=== PATIENT | female | born 1975 | race Caucasian/White ===

== ENCOUNTER 2022-03-10 06:49 | Emergency (ER) | payer MEDICAID ==
[2022-03-10] MEDS ORDERED: Sodium Chloride 0.9% 10 ML Syringe FLUSH PRN (07:24)
[2022-03-10] MEDS ORDERED: HYDROmorphone 1 MG/ML Syringe IVPUSH ONE ×2 (07:24→08:53)
[2022-03-10] MEDS ORDERED: Lidocaine/Prilocaine 2.5-2.5% Crm 5 GM Tube TOP ONE (07:34)
[2022-03-10] MEDS ORDERED: Lidocaine/Prilocaine 2.5-2.5% Crm 5 GM Tube ONE (07:34)
[2022-03-10] MEDS ORDERED: Vancomycin 2 GM in Sodium Chloride 0.9% 500 ML IV ONE (08:12)
[2022-03-10] MEDS ORDERED: Ketorolac 30 MG/ML SDV IVPUSH ONE (09:19)
[2022-03-10] MEDS ORDERED: Bacitracin Oint 1 GM U/D Packet TOP ONE (10:29)
== END 2022-03-10 10:40 | disposition home or self-care (01) ==
LOC: DL.ED 06:49
DX: K12.2 Cellulitis and abscess of mouth (principal); Z87.891 Personal history of nicotine dependence
CPT/HCPCS: 10060; 87070; 87077; 87186; 87205; 96365; 96366; 96375; 96376; 99282; 99283; A9270; J1170; J1885; J3370; J3490; J7040

== ENCOUNTER 2022-03-31 13:29 | Emergency (ER) | payer MEDICAID ==
[2022-03-31 14:47] LABS: ANION GAP 12.1 mEq/L (7-13)
[2022-03-31 14:54] LABS: PTT,PARTIAL THROMBOPLSTIN TIME 24.5 SEC (22.0-34.0)
== END 2022-03-31 15:50 | disposition home or self-care (01) ==
LOC: DL.ED 13:29
DX: R60.0 Localized edema (principal); S80.262A Insect bite (nonvenomous), left knee, initial encounter; Z88.8 Allergy status to other drugs, medicaments and biological substances; Z86.16 Personal history of COVID-19; Z87.891 Personal history of nicotine dependence; W57.XXXA Bitten or stung by nonvenomous insect and other nonvenomous arthropods, initial encounter
CPT/HCPCS: 36415; 80053; 83880; 85025; 85379; 85610; 85651; 85730; 86140; 93971; 99284

== ENCOUNTER 2022-06-01 06:55 | Emergency (ER) | payer OTHER, MEDICAID ==
[2022-06-01] MEDS ORDERED: Cyclobenzaprine 10 MG Tab PO ONE (07:29)
[2022-06-01] MEDS ORDERED: Ketorolac 30 MG/ML SDV IM ONE (07:29)
[2022-06-01] MEDS ORDERED: Acetaminophen 325 MG Tab PO ONE (07:30)
== END 2022-06-01 08:02 | disposition home or self-care (01) ==
LOC: DL.ED 06:55
DX: M62.838 Other muscle spasm (principal); M79.602 Pain in left arm; Z79.899 Other long term (current) drug therapy; Z88.8 Allergy status to other drugs, medicaments and biological substances; Z86.16 Personal history of COVID-19; V49.40XA Driver injured in collision with unspecified motor vehicles in traffic accident, initial encounter; Y92.410 Unspecified street and highway as the place of occurrence of the external cause
CPT/HCPCS: 96372; 99283; A9270-GY; J1885

== ENCOUNTER 2024-03-31 20:07 | Emergency (ER) | payer MEDICAID, OTHER ==
[2024-03-31] MEDS: Ketorolac 30 MG/ML SDV IM ONE (21:00)
== END 2024-03-31 22:00 | disposition home or self-care (01) ==
LOC: DL.ED 20:07
DX: G40.209 Localization-related (focal) (partial) symptomatic epilepsy and epileptic syndromes with complex partial seizures, not intractable, without status epilepticus (principal); R20.2 Paresthesia of skin; Z86.16 Personal history of COVID-19; Z88.8 Allergy status to other drugs, medicaments and biological substances
CPT/HCPCS: 70450; 96372; 99284; J1885

== ENCOUNTER 2024-04-09 08:38 | Emergency (ER) | payer OTHER ==
[2024-04-09 08:54] LABS: BASOPHILS PERCENT AUTO 0.3 % (0.0-1.0); EOSINOPHILS PERCENT AUTO 1.5 % (1.0-3.0); HEMATOCRIT 40.7 % (37.0-47.0); HEMOGLOBIN 13.1 g/dL (12.0-16.0); LYMPHOCYTES PERCENT AUTO 27.6 % (20.5-50.1); MEAN CORPUSCULAR HEMOGLOBIN 29.9 pg (27.0-34.0); MEAN CORPUSCULAR HGB CONC 32.2 g/dL (33.0-35.0); MEAN CORPUSCULAR VOLUME 92.9 fL (80-100); MONOCYTES PERCENT AUTO 6.7 % (2-8); NEUTROPHILS PERCENT AUTO 63.9 % (42.2-75.2); PLATELET COUNT,PLT 222 10^3/uL (150-450); RED BLOOD CELL COUNT 4.38 10^6/uL (4.2-5.4); WHITE BLOOD CELL COUNT,WBC 5.9 10^3/uL (5.0-10.0)
[2024-04-09] MEDS: Sodium Chloride 0.9% 1,000 ML IV ONE (09:08)
[2024-04-09] MEDS: Ondansetron 4 MG/2 ML SDV IVPUSH ONE (09:09)
[2024-04-09] MEDS: Famotidine 20 MG/2 ML SDV IVPUSH ONE (09:10)
[2024-04-09 09:15] LABS: A/G RATIO 1.1; ALANINE AMINOTRANSFERASE,ALT 19 U/L (14-59); ALBUMIN 3.6 g/dL (3.4-5.0); ALKALINE PHOSPHATASE 100 U/L (46-116); ANION GAP 11.9 mEq/L (7-13); ASPARTATE AMNIOTRANSFERASE,AST 15 U/L (15-37); BILIRUBIN TOTAL 0.4 mg/dL (0.2-1.0); BLOOD UREA NITROGEN,BUN 21 mg/dL (7-18); CALCIUM 8.6 mg/dL (8.5-10.1); CARBON DIOXIDE,CO2 29 mmol/L (21-32); CHLORIDE,CL 107 mmol/L (98-107); CREATININE 0.84 mg/dL (0.55-1.02); EST CRCL DRUG DOSING (CG) 69.19 mL/min; GLUCOSE RANDOM 107 mg/dL (70-99); LIPASE 22 U/L (16-77); MAGNESIUM 1.8 mg/dL (1.8-2.4); POTASSIUM,K 3.9 mmol/L (3.5-5.1); SODIUM,NA 144 mmol/L (136-145)
[2024-04-09 09:24] LABS: ESTIMATED GFR 85 mL/min (>=60); ETHANOL BLOOD MEDICAL < 3 mg/dL (0)
[2024-04-09] MEDS: Acetaminophen 325 MG Tab PO ONE (09:44)
[2024-04-09 10:11] LABS: APPEARANCE,URINE CLEAR (CLEAR); BILIRUBIN,URINE NEGATIVE (NEGATIVE); COLOR,URINE YELLOW (YELLOW); GLUCOSE,URINE NEGATIVE (NEGATIVE); KETONES,URINE NEGATIVE (NEGATIVE); LEUKOCYTE ESTERASE,URINE NEGATIVE (NEGATIVE); NITRITE,URINE NEGATIVE (NEGATIVE); OCCULT BLOOD,URINE TRACE-INTACT (NEGATIVE); PH,URINE 6.5 (5.0-9.0); PROTEIN,URINE NEGATIVE (NEGATIVE)
[2024-04-09 10:17] LABS: AMPHETAMINES,URINE NEGATIVE (NEGATIVE); BARBITURATES,URINE NEGATIVE (NEGATIVE); BENZODIAZEPINE,URINE NEGATIVE (NEGATIVE); MDMA (ECSTASY), URINE NEGATIVE (NEGATIVE); METHADONE,URINE NEGATIVE (NEGATIVE); METHAMPHETAMINES,URINE NEGATIVE (NEGATIVE); OPIATES,URINE NEGATIVE (NEGATIVE); OXYCODONE,URINE NEGATIVE (NEGATIVE); PHENCYCLIDINE,URINE NEGATIVE (NEGATIVE); TCA,URINE POSITIVE (NEGATIVE)
[2024-04-09 10:26] LABS: AMORPHOUS SEDIMENT,URINE FEW /HPF (NOT SEEN); BACTERIA,URINE FEW /HPF (0-FEW/HPF); EPITHELIAL CELLS,URINE FEW /HPF (NOT SEEN); MUCUS,URINE MODERATE /LPF (NOT SEEN); WBC,URINE 0-5 /HPF (0-5/HPF)
== END 2024-04-09 10:19 | disposition home or self-care (01) ==
LOC: DL.ED 08:38
DX: E86.0 Dehydration (principal); M25.511 Pain in right shoulder; G89.29 Other chronic pain; K21.9 Gastro-esophageal reflux disease without esophagitis; Z79.899 Other long term (current) drug therapy; Z88.8 Allergy status to other drugs, medicaments and biological substances
CPT/HCPCS: 36415; 70450; 71045; 80053; 80305-QW; 80307; 81001; 83690; 83735; 84484; 85025; 93005; 93010; 96361; 96374; 96375; 99284; 99285-25; A9270-GY; J2405; J3490; J7030

== ENCOUNTER 2024-11-04 10:31 | Emergency (ER) | payer OTHER ==
[2024-11-04] MEDS: Dexamethasone 4 MG/ML SDV IM ONE (11:27)
== END 2024-11-04 11:33 | disposition home or self-care (01) ==
LOC: DL.ED 10:31
DX: S46.911A Strain of unspecified muscle, fascia and tendon at shoulder and upper arm level, right arm, initial encounter (principal); Z88.8 Allergy status to other drugs, medicaments and biological substances; Z79.899 Other long term (current) drug therapy; Z86.16 Personal history of COVID-19; X58.XXXA Exposure to other specified factors, initial encounter; Y93.89 Activity, other specified
CPT/HCPCS: 73030; 96372; 99284; J1100; 99283

== ENCOUNTER 2025-04-01 07:17 | Emergency (ER) | payer BC, OTHER ==
[2025-04-01] MEDS: Erythromycin Base 0.5% Ophth Oint 3.5 GM Tube EYERT ONE (09:07)
== END 2025-04-01 11:00 | disposition home or self-care (01) ==
LOC: DL.ED 07:17
DX: H10.31 Unspecified acute conjunctivitis, right eye (principal); Z88.8 Allergy status to other drugs, medicaments and biological substances; Z79.899 Other long term (current) drug therapy; Z86.16 Personal history of COVID-19
CPT/HCPCS: 99283; A9270